=== PATIENT | female | born 1975 | race Hispanic/Latino ===

== ENCOUNTER → 2017-06-11 | Outpatient (CLI) | payer BC ==
[2017-06-11 13:44] LABS: ALBUMIN 3.9 g/dL (3.5-5.0); BILIRUBIN,DIRECT 0.2 mg/dL (0.0-5.0)
== END ==
LOC: LAB 13:00
PROVIDERS: ATTEND Internal Medicine Gastroenterology
DX: E11.9 Type 2 diabetes mellitus without complications (principal); I10 Essential (primary) hypertension; K76.0 Fatty (change of) liver, not elsewhere classified; R94.5 Abnormal results of liver function studies; E66.9 Obesity, unspecified; Z71.3 Dietary counseling and surveillance
CPT/HCPCS: 36415; 80076

== ENCOUNTER → 2017-11-11 | Day surgery (SDC) | payer BC ==
[~2017-11-11] MED LIST: DEXILANT60 MG PO; FENTANYL CITRATE/PF 100MCG/2 ML INJ ONE; LISINOPRIL10 MG PO; METFORMIN HCL500 MG PO; MIDAZOLAM HCL 2 MG/2 ML VIAL ONE; MULTI-VITAMIN1 EACH PO; PRAVASTATIN SOD20 MG PO; PROPOFOL IV EMULSION 10 MG/ML 50 ML VIAL ONE; ZYRTEC10 M3 PO
--- OUTSIDE RECORDS SUMMARY | 2017-11-11 06:18 | XMS REPORT ---
[facility] Address Unknown Phone Unavailable Care Team Providers Care [employer] Floor Walker Name Role Phone KADY PRESLEY Unavailable Unavailable Problems This patient has no known problems. Allergies, Adverse Reactions, Alerts This patient has no known allergies or adverse reactions. Medications This patient has no known medications. Results Test Description Test Time Test Comments Text Results Atomic Results Result Comments MAMMOGRAPHY DIGITAL SCR BILAT [place] [address] Patient Name: MONY COTTO MR #: [id number] : 1975 Age/Sex: 41/F Req #: [id number] Adm Physician: Ordered by: KADY PRESLEY MD Report #: [id number] Location: MAMMO Room/Bed: Procedure: [id number] MG/MAMMOGRAPHY DIGITAL SCR BILAT Exam Date: 11/24/16 Exam Time: 1300 REPORT STATUS: Signed THIS REPORT HAS BEEN AMENDED. #[id number] - [id number] #BILATERAL DIGITAL SCREENING MAMMOGRAM WITH CAD: 11/24/2016 CLINICAL: Routine screening. No prior exams were available for comparison. Current study contains 4 films. There are scattered fibroglandular elements in both breasts. Current study was also evaluated with a Computer Aided Detection (CAD) system. There are benign calcifications in both breasts. No significant masses, calcifications, or other findings are seen in either breast. IMPRESSION: BENIGN There is no mammographic evidence of malignancy. A 1 year screening mammogram is recommended. The patient will be notified by letter of the results. Lior perea/nakul:11/28/2016 13:05: 10 Hand Turner: Bettye ORTA)(Patsy), [facility] letter sent: Normal Exam Mammogram BI-RADS: 2 Benign AMENDMENT: 02/06/2017 Lior Conde Jr., D.O. Comparison to outside mammograms dated 07/24/2009 from [facility] is now possible as they have become available. There is an increase in both breasts that do not appear suspicious. There is no evidence of malignancy. Amended BI-RADS : 2 Benign letter sent: Compared to Prior B9 Dictated By: LIOR CONDE DO [id number] Transcribed By: NAKUL on 02/06/17 1347 COPY TO: KADY PRESLEY MD
== END | disposition home or self-care (01) ==
LOC: OR 06:16
PROVIDERS: ATTEND Internal Medicine Gastroenterology
DX: K29.00 Acute gastritis without bleeding (principal); K21.0 Gastro-esophageal reflux disease with esophagitis; K44.9 Diaphragmatic hernia without obstruction or gangrene; K76.0 Fatty (change of) liver, not elsewhere classified; I10 Essential (primary) hypertension; E66.9 Obesity, unspecified; E78.5 Hyperlipidemia, unspecified; E11.9 Type 2 diabetes mellitus without complications; Z01.810 Encounter for preprocedural cardiovascular examination; Z79.84 Long term (current) use of oral hypoglycemic drugs; Z68.33 Body mass index [BMI] 33.0-33.9, adult
CPT/HCPCS: 36415; 43239; 82948; 88305; 88312; 93005; J2250

== ENCOUNTER → 2018-01-25 | Outpatient (CLI) | payer BC ==
[~2018-01-25] MED LIST changes: -FENTANYL CITRATE/PF 100MCG/2 ML INJ ONE; -MIDAZOLAM HCL 2 MG/2 ML VIAL ONE; -PROPOFOL IV EMULSION 10 MG/ML 50 ML VIAL ONE
== END ==
LOC: MAMMO 10:11
PROVIDERS: ATTEND Obstetrics & Gynecology
DX: Z12.31 Encounter for screening mammogram for malignant neoplasm of breast (principal)
CPT/HCPCS: 77067

== ENCOUNTER → 2018-02-01 | Outpatient (CLI) | payer BC | LOC: LAB 09:12 | PROVIDERS: ATTEND Obstetrics & Gynecology | DX: Z78.0 Asymptomatic menopausal state (principal) | CPT/HCPCS: 82670; 83001; 84402 ==